=== PATIENT | male | born 1945 | race Caucasian/White ===

== ENCOUNTER → 2017-10-03 | Outpatient (CLI) | payer MEDICARE, OTHER ==
--- NOTE | 2017-10-16 23:22 | PROC ---
[address] [address] PROCEDURE REPORT Name: JENNIFER CHRISTENSEN Room: [facility]#: [id number] Admission: 10/03/17 Attend Phys: Portillo Em MD Discharge: Date of : 49 Report #: [id number] THIS REPORT FOR: //name// CC: Portillo Womack NP DATE OF PROCEDURE: 10/03/2017 RADIATION ONCOLOGY PROCEDURE NOTE [facility] phone is [phone]. REFERRING PHYSICIANS: 1. Dr. Nato Calles. 2. Dr. Gelacio Blair. 3. Dr. Gilman at the [facility]. 4. Adriana Womack, nurse practitioner. PRIMARY SITE AND HISTOPATHOLOGY: The patient received definitive radiation therapy for a stage II, T2 N0 M0, laryngeal cancer. He completed radiation treatments on 11/28/2012. PROCEDURE: Nasopharyngolaryngoscopy. FINDINGS: After administration of a small amount of 2% viscous lidocaine orally and administration of 2% viscous lidocaine to the right nostril, there were no visible lesions in the nasopharynx. There were no visible lesions in the posterior oropharynx. The true vocal cords were normally mobile bilaterally, without any visible lesions. There was no evidence of head and neck cancer. Thank you for allowing me to participate in the care of this patient. <ELECTRONICALLY SIGNED> By: Portillo Em MD 10/16/17 2322 1550 0136Portillo Em MD /nt
--- NOTE | 2017-10-16 23:30 | ONC ---
[place] [address] RADIATION ONCOLOGY NOTE Name: AMPAROJENNIFER Esteban Room: [facility]#: [id number] Admission: 10/03/17 Attend Phys: Portillo Em MD Discharge: Date of : 49 Report #: [id number] THIS REPORT FOR: //name// CC: Portillo Blair MD DATE OF SERVICE: 10/03/2017 REFERRING PHYSICIANS: Dr. Calles; Jaren Gilman MD; and Adriana Womack, nurse practitioner [facility] phone is [phone]. PRIMARY SITE AND HISTOPATHOLOGY: The patient received definitive radiation therapy for a stage II, T2N0M0, laryngeal cancer. The patient completed radiation treatments on 11/28/2012. INTERVAL NOTE: The patient is eating a regular diet. He has a good quality voice. MEDICATIONS: Aspirin, atorvastatin, fish oil, Prilosec and Viagra. SOCIAL HISTORY: The patient has 2 daughters and a son. Cigarettes: he quit smoking in 2011. He smoked a pack a day for about 25 years prior to that. REVIEW OF SYSTEMS: RESPIRATORY: He was not short of breath during his appointment. GASTROINTESTINAL: He has a good appetite. PHYSICAL EXAMINATION: VITAL SIGNS: The patient weighed 164.4 pounds on 10/03/2017, the patient was 160.4 pounds on 03/14/2017. On 10/03/2017, blood pressure 138/76, pulse 86, and respirations 18. LYMPH NODES: The patient had no palpable cervical or supraclavicular lymphadenopathy. HEAD, EYES, EARS, NOSE AND THROAT: Mouth had no suspicious visible lesions or suspicious palpable lesions. On nasopharyngolaryngoscopy, after administration of a small amount of 2% viscous lidocaine orally and 2% viscous lidocaine to the right nostril, there were no visible lesions in the nasopharynx and no visible lesions in the posterior oropharynx. The true vocal cords were normally mobile bilaterally without any visible lesions. HEART: Had a regular rate [place] [address] RADIATION ONCOLOGY NOTE Name: JENNIFER CHRISTENSEN Room: [facility]#: [id number] Admission: 10/03/17 Attend Phys: Portillo Em MD Discharge: Date of : 49 Report #: [id number] LUNGS: were clear to auscultation. LABORATORY DATA: From the [place] on 09/20/2017 TSH was 1.424 which was within normal limits. He had a screening chest CT on 09/30/2017, which showed stable tiny noncalcified right pulmonary nodules which appear to represent scars or granulomas. Continued annual low dose CT lung screening was recommended. There were at least mild coronary artery calcifications. ASSESSMENT AND PLAN: 1. History of laryngeal cancer- There is no evidence of laryngeal cancer at this time. The patient was given a requisition to have a TSH checked sometime in 6 months. He was asked to schedule a followup appointment to see me afterwards. 2. Smoking history- The recent low dose chest CT showed no evidence of cancer. The patient was asked to schedule a follow up appointment to see me back in about 6 months. 3. Hyperlipidemia- The patient takes atorvastatin and that is managed by his referring physicians. 4. Mild coronary artery calcification- The patient will be referred to his primary care staff, Adriana Womack, nurse practitioner, to manage that issue. Thank you for allowing me to participate in the care of this patient. <ELECTRONICALLY SIGNED> By: Portillo Em MD 10/16/17 2330 1602 0331Dtawnya Em MD /nt
== END ==
LOC: M.RTH 09-26 15:00
DX: Z08 Encounter for follow-up examination after completed treatment for malignant neoplasm (principal); E78.5 Hyperlipidemia, unspecified; I25.10 Atherosclerotic heart disease of native coronary artery without angina pectoris; Z85.21 Personal history of malignant neoplasm of larynx; Z87.891 Personal history of nicotine dependence

== ENCOUNTER → 2018-03-24 | Outpatient (CLI) | payer MEDICARE, OTHER ==
--- NOTE | 2018-04-01 15:08 | ONC ---
[place] [address] RADIATION ONCOLOGY NOTE Name: JENNIFER CHRISTENSEN Room: [facility]#: [id number] Admission: 03/24/18 Attend Phys: Portillo Em MD Discharge: Date of : 49 Report #: [id number] THIS REPORT FOR: //name// CC: Portillo Calles DATE OF PROCEDURE: 03/24/2018 RADIATION ONCOLOGY PROCEDURE NOTE REFERRING PHYSICIANS: Dr. Nato Calles; Adriana Womack, nurse practitioner; Dr. Gilman at the [place] and Dr. Gelacio Blair. [facility] phone is [phone]. PRIMARY SITE AND HISTOPATHOLOGY: The patient received definitive radiation therapy for a stage II, T2N0M0, laryngeal cancer. He completed radiation treatments on 11/28/2017. PROCEDURE: Nasopharyngolaryngoscopy. FINDINGS: After administration of a small amount of 2% viscous lidocaine orally and administration of 2% viscous lidocaine to the right nostril, there were no visible lesions in the nasopharynx and no visible lesions in the posterior oropharynx. The true vocal cords were normally mobile bilaterally without any visible lesions. There was no evidence of head and neck cancer. Thank you for allowing me to participate in the care of this patient. <ELECTRONICALLY SIGNED> By: Portillo Em MD 04/01/18 1508 1145 1817MD jb Beck
--- NOTE | 2018-04-01 15:14 | ONC ---
[place] [address] RADIATION ONCOLOGY NOTE Name: JENNIFER CHRISTENSEN Room: [facility]#: [id number] Admission: 03/24/18 Attend Phys: Portillo Em MD Discharge: Date of : 49 Report #: [id number] THIS REPORT FOR: //name// CC: Portillo Womack NP DATE OF SERVICE: 03/24/2018 REFERRING PHYSICIANS: Include Dr. Calles; Dr. Jaren Gilman from the [place]; Gelacio Blair MD; Adriana Womack, nurse practitioner. [facility] phone is [phone]. PRIMARY SITE AND HISTOPATHOLOGY: The patient received definitive radiation therapy for a stage II, T2 N0 M0, laryngeal cancer. The patient completed radiation treatments on 11/28/2017. INTERVAL NOTE: The patient is eating a regular diet. He has a good quality voice. In terms of his diet, he likes food such as salads, meat and potatoes. MEDICATIONS: Aspirin, atorvastatin, fish oil, Prilosec, Viagra. SOCIAL HISTORY: The patient has 2 daughters and a son. Cigarettes: He quit smoking in 2011. He smoked about a pack a day for about 25 years prior to that time. REVIEW OF SYSTEMS: RESPIRATORY: He was not short of breath during his appointment. GASTROINTESTINAL: He has a good appetite. PHYSICAL EXAMINATION: VITAL SIGNS: The patient weighed 157.8 pounds on 03/24/2018. The patient was 164.4 pounds on 10/03/2017. The patient was 160.4 pounds on 03/14/2017. On 03/24/2018, blood pressure was 117/87, pulse 82, respirations 20, oxygen saturation was 98% on room air. LYMPH NODES: The patient had no palpable cervical or supraclavicular lymphadenopathy. HEAD, EYES, EARS, NOSE AND THROAT: Mouth had no suspicious visible lesions or suspicious palpable lesions. On nasopharyngolaryngoscopy, after administration of a small amount of 2% viscous lidocaine orally and 2% viscous lidocaine to the right nostril, there were no visible lesions in the nasopharynx [place] [address] RADIATION ONCOLOGY NOTE Name: JENNIFER CHRISTENSEN Room: [facility]#: [id number] Admission: 03/24/18 Attend Phys: Portillo Em MD Discharge: Date of : 49 Report #: [id number] lesions in the posterior oropharynx. The true vocal cords were normally mobile bilaterally without any visible lesions. HEART: Had a regular rate and rhythm without murmur. LUNGS: were clear to auscultation. LABORATORY DATA: From 03/20/2018, TSH was 1.01. RADIOLOGIC DATA: The patient had a low dose chest CT without contrast on 09/30/2017, that showed a stable tiny noncalcified right pulmonary nodule which was thought to represent scar or granuloma and continued annual low dose CT lung screening was recommended and there was some mild coronary artery calcifications present. ASSESSMENT AND PLAN: 1. History of laryngeal cancer- There is no evidence of laryngeal cancer at this time. A requisition was written for him to have a TSH checked in about 6 months and the patient was asked to schedule a follow up appointment to see me afterwards. 2. Smoking history- A low dose chest CT without contrast was ordered around 09/2018 or 10/2018. The patient was asked to schedule a follow up appointment to see me afterwards. 3. Hyperlipidemia- The patient takes atorvastatin and that is managed by his referring physicians. 4. Mild coronary artery calcifications- The patient was referred to his primary care staff to manage that issue, in the past. Thank you for allowing me to participate in the care of this patient. <ELECTRONICALLY SIGNED> By: Portillo Em MD 04/01/18 1514 1152 1824Dtawnya Em MD /nt
== END ==
LOC: M.RTH 03:46
DX: Z08 Encounter for follow-up examination after completed treatment for malignant neoplasm (principal); C32.9 Malignant neoplasm of larynx, unspecified; E78.5 Hyperlipidemia, unspecified; I25.10 Atherosclerotic heart disease of native coronary artery without angina pectoris; Z87.891 Personal history of nicotine dependence

== ENCOUNTER → 2018-11-24 | Outpatient (CLI) | payer MEDICARE, OTHER ==
--- NOTE | ~2018-11-24 | ONC ---
[address] [address] RADIATION ONCOLOGY NOTE Name: AMPAROJENNIFER Esteban Room: [facility]#: [id number] Admission: 11/24/18 Attend Phys: Portillo Em MD Discharge: Date of : 49 Report #: [id number] THIS REPORT FOR: //name// CC: Portillo Anaya DATE OF SERVICE: 11/24/2018 REFERRING PHYSICIANS: Dr. Jaren Gilman, Dr. Calles; Gelacio Blair MD; Guerrero Anaya MD; and , nurse practitioner. [facility] phone is [phone]. PRIMARY SITE AND HISTOPATHOLOGY: The patient received definitive radiation therapy for stage 2 T2 N0 M0 laryngeal cancer. The patient completed radiation treatments on 11/28/2012. INTERVAL NOTE: The patient is eating regular diet. He has good quality voice. MEDICATIONS: Aspirin, atorvastatin, fish oil, Prilosec, Viagra. SOCIAL HISTORY: The patient has 2 daughters and a son. Cigarettes: He quit smoking in 2011. He smoked about a pack a day for about 25 years prior to that time. REVIEW OF SYSTEMS: RESPIRATORY: He was not short of breath during his appointment. GASTROINTESTINAL: He has good appetite. PHYSICAL EXAMINATION: VITAL SIGNS: The patient weighed 164.6 pounds on 11/24/2018. He was 157.8 pounds on 03/24/2018 and on 11/24/2018, blood pressure is 151/72, pulse 88, respirations 20, oxygen saturation was 96% on room air. LYMPH NODES: He had no palpable cervical or supraclavicular lymphadenopathy. HEAD, EYES, EARS, NOSE AND THROAT: Mouth had no suspicious visible lesions or suspicious palpable lesions. Nasopharyngolaryngoscopy: After administration of a small amount of 2% viscous lidocaine orally and 2% viscous lidocaine to the right nostril, there were no visible lesions in the nasopharynx or posterior pharynx. There were no visible lesions in the posterior oropharynx. The true vocal cords were normally mobile bilaterally without any visible lesions. HEART: Had a regular rate and rhythm without murmur. LUNGS: Clear to auscultation. LABORATORY DATA: From 09/22/2018, the patient's TSH was 1.552. PSA was 0.26. Sodium 134, potassium 4.4, BUN 12, creatinine 0.8. White blood count was 5.25, hemoglobin 15.4, platelets 132,000. [place] [address] RADIATION ONCOLOGY NOTE Name: JENNIFER CHRISTENSEN Room: [facility]#: [id number] Admission: 11/24/18 Attend Phys: Portillo Em MD Discharge: Date of : 49 Report #: [id number] RADIOLOGIC DATA: The patient had low dose chest CT done on 10/04/2018, which revealed stable small pulmonary nodules compatible with noncalcified granuloma, recommended attention on annual low-dose screening chest CT and moderate coronary artery calcifications. ASSESSMENT AND PLAN: 1. History of laryngeal cancer. There is no evidence of laryngeal cancer at this time. Requisition was written for TSH in about 1 year and he is asked to schedule a followup appointment to see me afterwards. 2. Smoking history. Low-dose chest CT was ordered in about a year and he was asked to follow up with me afterwards. 3. Neuropathy. He has some neuropathy in his right extremities. He will be referred to the oncology rehabilitation physician, Dr. Lees, for further evaluation. 4. Hyperlipidemia. The patient takes atorvastatin that is managed by his referring physicians. 5. Mild coronary artery calcification. The patient was referred to his primary care staff for management of this issue. He said he had a stress test in the past. Thank you for allowing me to participate in the care of this patient. By: 1836 [id number] Em MD /nt
--- NOTE | ~2018-11-24 | ONC ---
[place] [address] RADIATION ONCOLOGY NOTE Name: JENNIFER CHRISTENSEN Room: [facility]#: [id number] Admission: 11/24/18 Attend Phys: Portillo Em MD Discharge: Date of : 49 Report #: [id number] THIS REPORT FOR: //name// CC: Portillo Anaya REFERRING PHYSICIANS: Include Dr. Angela, Dr. Calles, and , nurse practitioner, Gelacio Blair MD. [facility] phone is [phone]. PRIMARY SITE AND HISTOPATHOLOGY: The patient received definitive radiation therapy for stage 2 T2 N0 M0 laryngeal cancer. He completed radiation treatment on 11/28/2012. PROCEDURE: Nasopharyngolaryngoscopy. FINDINGS: After administration of a small amount of 2% viscous lidocaine orally and 2% viscous lidocaine to the right nostril, there were no visible lesions in the nasopharynx, no visible lesions in the posterior oropharynx. The true vocal cords are normally mobile bilaterally without any visible lesions. There is no evidence of head and neck cancer. Thank you for allowing me to participate in the care of this patient. By: 1829 0310Dawestley Em MD /nt
== END ==
LOC: M.RTH 09-27 11:00
DX: Z08 Encounter for follow-up examination after completed treatment for malignant neoplasm (principal); I25.10 Atherosclerotic heart disease of native coronary artery without angina pectoris; E78.5 Hyperlipidemia, unspecified; G62.9 Polyneuropathy, unspecified; F17.200 Nicotine dependence, unspecified, uncomplicated; Z85.21 Personal history of malignant neoplasm of larynx

== ENCOUNTER → 2019-10-05 | Outpatient (CLI) | payer MEDICARE, OTHER ==
--- NOTE | 2019-10-07 20:04 | ONC ---
[place] [address] RADIATION ONCOLOGY NOTE Name: JENNIFER CHRISTENSEN Room: [facility]#: [id number] Admission: 10/05/19 Attend Phys: Portillo Em MD Discharge: Date of : 49 Report #: [id number] THIS REPORT FOR: //name// CC: Portillo Blair DATE OF SERVICE: 10/05/2019 REFERRING PHYSICIANS: Dr. Gilman, Dr. Guerrero Anaya, Dr. Calles, Dr. Gelacio Blair. [facility] phone is [phone]. PRIMARY SITE AND HISTOPATHOLOGY: The patient received definitive radiation therapy for a stage II, T2N0M0, laryngeal cancer. He completed radiation treatments on 11/28/2012. PROCEDURE: Nasopharyngolaryngoscopy. FINDINGS: After administration of a small amount of 2% viscous lidocaine orally and 2% viscous lidocaine to the right nostril, there were no visible lesions in the nasopharynx, no visible lesions in the posterior oropharynx. The true vocal cords were normally mobile bilaterally without any visible lesions. There was no evidence of head and neck cancer. Thank you for allowing me to participate in the care of this patient. <ELECTRONICALLY SIGNED> By: Portillo Em MD 10/07/19 2004 1437 0123DMD jb Abreu
--- NOTE | 2019-10-07 20:22 | ONC ---
[place] [address] RADIATION ONCOLOGY NOTE Name: AMPAROJENNIFER Esteban Room: [facility]#: [id number] Admission: 10/05/19 Attend Phys: Portillo Em MD Discharge: Date of : 49 Report #: [id number] THIS REPORT FOR: //name// CC: Portillo Angela DATE OF SERVICE: 10/05/2019 RADIATION ONCOLOGY FOLLOWUP NOTE REFERRING PHYSICIANS: Dr. Guerrero Anaya, Dr. Calles, Dr. Gelacio Blair and Dr. Angela. [facility] phone is [phone]. PRIMARY SITE AND HISTOPATHOLOGY: The patient received definitive radiation therapy for a stage II, T2 N0 M0, laryngeal cancer. The patient completed radiation treatments on 11/28/2012. INTERVAL NOTE: The patient is eating a regular diet. He has a good quality voice. He has had a weakened urinary stream with nocturia about 4 times a night. He was started on Flomax 0.4 mg per day for this issue. MEDICATIONS: Atorvastatin, pantoprazole, tadalafil and tamsulosin. SOCIAL HISTORY: The patient has 2 daughters and a son. Cigarettes: He quit smoking in 2011; he smoked about a pack a day for about 25 years prior to that time. REVIEW OF SYSTEMS: RESPIRATORY: He was not short of breath during his appointment. GASTROINTESTINAL: He has a good appetite. PHYSICAL EXAMINATION: VITAL SIGNS: The patient weighed 161.2 pounds on 10/05/2019 and 164.6 pounds on 11/24/2018; and on 10/05/2019, blood pressure was 158/84, respirations 24, pulse 92, oxygen saturation 98%. LYMPH NODES: He had no palpable cervical or supraclavicular lymphadenopathy. HEAD, EYES, EARS, NOSE AND THROAT: Mouth had no suspicious visible lesions or suspicious palpable lesions. On nasopharyngolaryngoscopy, after administration of a small amount of 2% viscous lidocaine orally and 2% viscous lidocaine to the left nostril, there were no visible lesions in the nasopharynx or posterior pharynx, there were no visible lesions in the posterior oropharynx. The true vocal cords were normally mobile bilaterally without any visible lesions. HEART: [place] [address] RADIATION ONCOLOGY NOTE Name: JENNIFER CHRISTENSEN Room: [facility]#: [id number] Admission: 10/05/19 Attend Phys: Portillo Em MD Discharge: Date of : 49 Report #: [id number] Had a regular rate and rhythm without murmur. LUNGS: were clear to auscultation. LABORATORY DATA: From 09/18/2019: Sodium 133, potassium 4.8, BUN 17, creatinine 0.81, AST 21, ALT 23, alkaline phosphatase 66. White blood cell count 7.18, hemoglobin 14.8, platelets 167,000. TSH was 0.935. RADIOLOGIC DATA: He is having a screening chest CT today. He had one on 09/30/2017, which showed findings consistent with scars or granulomas. ASSESSMENT AND PLAN: 1. History of laryngeal cancer.- There is no evidence of laryngeal cancer at this time. A requisition was written for a TSH in about 1 year and he was asked to schedule a follow up appointment to see me afterwards. 2. Smoking history- The patient had a low-dose chest CT ordered in about a year and he was asked to schedule a followup appointment to see me afterwards. 3. Hyperlipidemia- The patient takes atorvastatin and that is managed by his referring physicians. 4. Mild coronary artery calcification- The patient was referred to his primary care staff for management of this issue. He said he had a stress test in the past. 5. Urinary hesitancy- The patient will be referred to the urologist, Dr. Gautam Bermudez, to evaluate this issue. Thank you for allowing me to participate in the care of this patient. <ELECTRONICALLY SIGNED> By: Portillo Em MD 10/07/192021 1452 0139Portillo Em MD /nt
== END ==
LOC: M.RTH 09:00
DX: Z09 Encounter for follow-up examination after completed treatment for conditions other than malignant neoplasm (principal); E78.5 Hyperlipidemia, unspecified; I25.10 Atherosclerotic heart disease of native coronary artery without angina pectoris; Z85.21 Personal history of malignant neoplasm of larynx; Z92.3 Personal history of irradiation; Z79.899 Other long term (current) drug therapy; Z87.891 Personal history of nicotine dependence

== ENCOUNTER → 2020-10-10 | Outpatient (CLI) | payer MEDICARE, OTHER ==
--- NOTE | 2020-10-12 19:49 | ONC ---
[place] [address] RADIATION ONCOLOGY NOTE Name: AMPAROJENNIFER Esteban Room: [facility]#: [id number] Admission: 10/10/20 Attend Phys: oPrtillo Em MD Discharge: Date of : 49 Report #: [id number] THIS REPORT FOR: cc: Liza Nguyen MD, Sarah N. MD ~ Portillo Em MD DATE OF PROCEDURE: 10/10/2020 Cc:Dr. Guerrero Blair MD PROCEDURE NOTE REFERRING PHYSICIANS: Dr. Guerrero Anaya, Dr. Gilman, Dr. Calles and Dr. Gelacio Blair. PRIMARY SITE AND HISTOPATHOLOGY: The patient received definitive radiation therapy for a stage II, T2 N0 M0 laryngeal cancer. He completed radiation treatments on 11/28/2012. PROCEDURE: Nasopharyngolaryngoscopy. FINDINGS: After administration of a small amount of 2% viscous lidocaine orally and 2% viscous lidocaine to the right nostril, there were no visible lesions in the nasopharynx. There were no visible lesions in the posterior oropharynx. The true vocal cords were normally mobile bilaterally without any visible lesions. There was no evidence of head and neck cancer. Thank you for allowing me to participate in the care of this patient. <ELECTRONICALLY SIGNED> By: Portillo Em MD 10/12/209 41 2119MD jb Beck
--- NOTE | 2020-10-12 20:01 | ONC ---
[address] [address] RADIATION ONCOLOGY NOTE Name: JENNIFER CHRISTENSEN Room: [facility]#: [id number] Admission: 10/10/20 Attend Phys: Portillo Em MD Discharge: Date of : 49 Report #: [id number] THIS REPORT FOR: cc: Liza Nguyne MD, Sarah N. MD ~ Portillo Em MD DATE OF SERVICE: 10/10/2020 Cc:Dr. Guerrero Gilman RADIATION ONCOLOGY FOLLOWUP NOTE REFERRING PHYSICIANS: Dr. Guerrero Anaya, Dr. Calles, Dr. Gelacio Blair and Dr. Gilman. [facility] phone is [phone]. PRIMARY SITE AND HISTOPATHOLOGY: The patient received definitive radiation therapy for a stage II, T2 N0 M0 laryngeal cancer. The patient completed radiation treatments on 11/28/2012. INTERVAL NOTE: The patient is eating a regular diet. He has a good quality voice. MEDICATIONS: Atorvastatin, pantoprazole and tadalafil. SOCIAL HISTORY: The patient has 2 daughters and a son. Cigarettes: he quit smoking in 2011, he smoked about a pack a day for about 25-30 years prior to that time. REVIEW OF SYSTEMS: RESPIRATORY: He was not short of breath during his appointment. GASTROINTESTINAL: He has a good appetite. PHYSICAL EXAMINATION: VITAL SIGNS: The patient weighed 159.8 pounds on 10/10/2020 and 161.2 pounds on 10/05/2019. On 10/10/2020 blood pressure was 137/73, pulse 70, respirations 18, temperature 98.6 degrees Fahrenheit, oxygen saturation was 98%. LYMPH NODES: He had no palpable cervical or supraclavicular lymphadenopathy. HEAD, EYES, EARS, NOSE AND THROAT: Mouth had no suspicious visible lesions or suspicious palpable lesions. On nasopharyngolaryngoscopy, after administration of a small amount of 2% viscous lidocaine orally and 2% [place] [address] RADIATION ONCOLOGY NOTE Name: JENNIFER CHRISTENSEN Room: [facility]#: [id number] Admission: 10/10/20 Attend Phys: Portillo Em MD Discharge: Date of : 49 Report #: [id number] the left nostril,there were no visible lesions in the nasopharynx or posterior pharynx. There were no visible lesions in the posterior oropharynx. The true vocal cords were normally mobile bilaterally without any visible lesions. HEART: Had a regular rate and rhythm without murmur. LUNGS: were clear to auscultation. LABORATORY DATA: From 09/05/2020, TSH was 0.975, which was within normal limits. Sodium was 135, potassium was 4.7, BUN was 15, creatinine was 0.88. White blood count 4.85, hemoglobin 14.9, platelets were 157,000. RADIOLOGIC DATA: He is having a screening chest CT today. He had one on 10/05/2019 which revealed a stable tiny left upper lobe nodule,which was thought to be a granuloma, he had mild emphysema and his physician was notified that he may have had an upper respiratory infection when that was done. ASSESSMENT AND PLAN: 1. History of laryngeal cancer- There is no evidence of laryngeal cancer at this time.A requisition was written for a TSH in about 1 year. The patient was asked to schedule a follow up appointment to see me afterwards. 2. Smoking history- The patient has a low-dose chest CT today and one was ordered in about 1 year and he was asked to follow up with me in about 1 year. 3. Hyperlipidemia- The patient takes atorvastatin and that is managed by his referring physicians. Thank you for allowing me to participate in the care of this patient. Portillo Em MD <ELECTRONICALLY SIGNED> By: Portillo Em MD 10/12/202000 2047 2205Dawestley Em MD /nt
== END ==
LOC: M.RTH 10:30
PROVIDERS: ATTEND Radiology Radiation Oncology
DX: Z85.21 Personal history of malignant neoplasm of larynx (principal); Z92.3 Personal history of irradiation; E78.2 Mixed hyperlipidemia; Z87.891 Personal history of nicotine dependence